=== PATIENT | male | born 1945 | race Caucasian/White ===

== ENCOUNTER 2019-01-21 18:59 | Inpatient (IN) | payer MEDICARE, OTHER, SELFPAY | END 2019-01-22 10:59 | disposition home or self-care (01) | DRG 309 | PROVIDERS: Admitting Provider Internal Medicine; Emergency Provider Emergency Medicine; Visit Provider Internal Medicine | DX: I47.2 Ventricular tachycardia (principal); I50.22 Chronic systolic (congestive) heart failure; I48.91 Unspecified atrial fibrillation; J44.9 Chronic obstructive pulmonary disease, unspecified; E78.5 Hyperlipidemia, unspecified; I25.10 Atherosclerotic heart disease of native coronary artery without angina pectoris; Z95.1 Presence of aortocoronary bypass graft; N40.0 Benign prostatic hyperplasia without lower urinary tract symptoms; F43.10 Post-traumatic stress disorder, unspecified; Z95.5 Presence of coronary angioplasty implant and graft; F17.210 Nicotine dependence, cigarettes, uncomplicated | CPT/HCPCS: 36415; 71046; 80048; 80053; 83735; 83880; 84439; 84443; 84480; 84484; 85025; 85610; 85730; 93005; 96374; 99285; A9270; J0282 ==

== ENCOUNTER 2020-05-02 18:16 | Emergency (ER) | payer OTHER, SELFPAY ==
--- NOTE | ~2020-05-02 | CT_ITS ---
EXAMINATION: CT brain wo con DATE: 05/02/2020 18:54 INDICATION: Syncopal episode TECHNIQUE: Computed tomography (CT) of the head was performed without intravenous contrast. The dose- length product was 605.33 mGy-cm. The mA was adjusted according to patient size. Iterative reconstruc tion technique was employed. COMPARISON: CT dated 02/18/2018 FINDINGS: Brain parenchymal volume is normal for age. There is a chronic right occipital lobe infarct ion versus focal sulcal prominence. No significant change. There are scattered mild periventricular a nd subcortical white matter changes, most likely related to small vessel ischemic disease (microangio alyssia). No acute intracranial hemorrhage, infarction, mass or mass effect. No ventriculomegaly or mid line shift. Paranasal sinuses and mastoids are pneumatized. No depressed skull fractures. Stable left temporal region calcification, likely benign. IMPRESSION: 1. No acute intracranial abnormality. No significant change from prior examination. Reviewed, dictated and finalized at location A. IMPRESSION: 1. No acute intracranial abnormality. No significant change from prior examinat ion.
--- NOTE | ~2020-05-02 | XR_ITS ---
XR chest 2V 05/02/2020 19:00 Indication: Syncope. Patient on blood thinners. Procedure: AP view of the chest Comparison: 01/21/2019 Findings: Status post median sternotomy for CABG. Moderate cardiomegaly. Pacemaker leads are stable. There is mild pulmonary vascular congestion. No focal parenchymal consolidation, effusion or pneumoth orax. Impression: 1: Moderate cardiomegaly with mild pulmonary vascular congestion. Reviewed, dictated and finalized at location A. Impression: 1: Moderate cardiomegaly with mild pulmonary vascular congestion.
[2020-05-02 18:17] VITALS: BP 104/68; PULSE 73; RESP 18; TEMP 36.7; O2SAT 96
--- NOTE | 2020-05-02 18:27 | ED.SYNCOPE ---
HPI - Syncope General Chief Complaint: Syncope Stated Complaint: Syncopal Time Seen by Provider: 05/02/20 18:21 Source: patient and EMS History of Present Illness HPI narrative: 75-year-old male presents to emergency department after syncopal episode today. Patient states he was riding his lawnmower, and then fell off of it. No symptoms prior to falling off of it. Unsure how long he was passed out for. Unknown if seizure-like activity. Patient states he has never passed out like this in the past before. Patient states currently he just feels tired. No chest pain or shortness of breath. No abdominal pain. No nausea or vomiting. Related Data Allergies Allergy/AdvReac Type Severity Reaction Status Date / Time Sulfa (Sulfonamide Allergy Mild Verified 01/21/19 22:29 Antibiotics) Review of Systems Review of Systems: Narrative: CONSTITUTIONAL: Denies fever, chills, or sweats. EYES: Denies visual changes, redness, or discharge. ENT: Denies rhinorrhea, congestion, sore throat, or otalgia. CARDIOVASCULAR: Denies chest pain, palpitations, or edema. RESPIRATORY: Denies cough or dyspnea. GASTROINTESTINAL: Denies abdominal pain, nausea, vomiting, or diarrhea. GENITOURINARY: Denies dysuria or hematuria. SKIN: Denies rash or itching. MUSCULOSKELETAL: Denies back pain, joint pain, or myalgia. NEUROLOGIC: Denies headache, numbness, dizziness, or weakness. Positive for syncope PSYCHIATRIC: Denies anxiety or depression. All systems reviewed & are unremarkable except as noted in HPI and below (ROS) PMFSH Social History Social History Gender identity (if verbalized by the patient): Male Exam Narrative: Exam Narrative: GENERAL: Well-appearing, well-nourished. Mild distress HEAD: Normocephalic, atraumatic. EYES: PERRLA and EOMI. ENT: Nares clear, no rhinorrhea or epistaxis. Mucous membranes moist. NECK: Supple. CHEST: Clear to auscultation. No respiratory distress. HEART: Regular rate and rhythm. No murmur heard. Normal peripheral pulses. ABDOMEN: Soft, nontender, nondistended, normal active bowel sounds. EXTREMITIES: Normal range of motion. No edema. SKIN: Multiple abrasions on body. NEURO: No focal deficits. Alert and oriented x3. PSYCH: Slowed responses. Course Vital Signs Vital signs: Vital Signs Temperature 36.7 C 05/02/20 18:17 Pulse Rate 73 05/02/20 18:17 Respiratory Rate 18 05/02/20 18:17 Blood Pressure 104/68 05/02/20 18:17 Pulse Oximetry 96 05/02/20 18:17 Temperature 36.8 C 05/02/20 21:38 Pulse Rate 78 05/02/20 21:38 Respiratory Rate 16 05/02/20 21:38 Blood Pressure 148/86 H 05/02/20 21:38 Pulse Oximetry 97 05/02/20 21:38 MDM - Syncope MDM Narrative Medical decision making narrative: 2104 -reevaluated patient, no new complaints. At this time we have no clear cause of the syncopal episode. Offered to keep patient in the hospital for further evaluation of syncopal episode. Patient and family declined stating that he looks and feels back to normal. Counseled patient to follow-up with his medical provider within 1 week. Return to emergency department at any time if he passes out, has signs of stroke, or other concerns. Differential diagnosis includes TIA, heat exhaustion, and arrhythmia Medical Records Attestation: I reviewed the patient's medical records. Lab Data Attestation: I reviewed the patient's lab results. Result diagrams: 05/02/20 18:44 05/02/20 18:44 Labs: Lab Results 05/02/20 05/02/20 05/02/20 Range/Units 18:43 18:44 18:44 WBC 9.1 (4.5-10.0) K/mm3 RBC 3.85 L (4.6-6.20) M/mm3 Hgb 11.2 L (14.0-18.0) g/dL Hct 33.2 L (42.0-52.0) % MCV 86.2 (80-100) fl MCH 29.1 (26-34) pg MCHC 33.7 (32-36) g/dl RDW 14.8 H (11.5-14.5) % Plt Count 176 (150-375) k/mm3 MPV 10.0 (7.4-10.4) fl Immature Gran % (Auto) 0.4 (0-0.5) % Neut % (Auto) 56.2 (45.5-73.1) % Lymph % (Auto) 31.4
--- NOTE | 2020-05-02 18:29 | ECG_ITS ---
Measurements Intervals [place] Rate: 70 P: VA: 0 QRS: 106 QRSD: 227 T: -20 QT: 511 QTc: 554 Interpretive Statements ELECTRONIC VENTRICULAR PACEMAKER BASELINE ARTIFACT- I, V1-V2, V6 NO FURTHER INTERPRETATION IS POSSIBLE ATYPICAL ECG Electronically Signed On 05-02-2020 21:19:21 CDT by Rj Lopes D.O.
[2020-05-02 18:49] LABS: Basophils Absolute Auto 0.1 K/mm3 (0.0-0.1); Basophils Percent Auto 0.9 % (0.2-1.2); Eosinophils Absolute Auto 0.3 K/mm3 (0-0.3); Eosinophils Percent Auto 3.4 % (0-4.4); Hematocrit 33.2 % (42.0-52.0); Hemoglobin 11.2 g/dL (14.0-18.0); Immature Granulocyte Absolute 0.04 K/mm3 (0.00-0.031); Immature Granulocyte Percent A 0.4 % (0-0.5); Lymphocytes Absolute Auto 2.85 K/mm3 (0.9-3.2); Lymphocytes Percent Auto 31.4 % (18.3-44.2); Mean Corpuscular HGB Conc 33.7 g/dl (32-36); Mean Corpuscular Hemoglobin 29.1 pg (26-34); Mean Corpuscular Volume 86.2 fl (80-100); Monocytes Absolute Auto 0.7 K/mm3 (0.1-0.6); Monocytes Percent Auto 7.7 % (2.6-8.5); Neutrophils Absolute Auto 5.1 K/mm3 (1.3-6.7); Neutrophils Percent Auto 56.2 % (45.5-73.1); Platelet Count Result 176 k/mm3 (150-375); Red Blood Count 3.85 M/mm3 (4.6-6.20); Red Cell Distribution Width 14.8 % (11.5-14.5); White Blood Count 9.1 K/mm3 (4.5-10.0)
[2020-05-02 18:56] VITALS: PULSE 74
[2020-05-02 18:59] LABS: Prothrombin Time 22.2 Seconds (11.1-14.7)
[2020-05-02 19:02] LABS: Alanine Aminotransferase 17 U/L (4-50); Albumin Level 4.2 g/dL (3.5-5.1); Alkaline Phosphatase 96 U/L (38-126); Anion Gap 11 mmol/L (8-16); Aspartate Amino Transferase 26 U/L (17-59); Bilirubin,Total 0.6 mg/dL (0.2-1.3); Blood Urea Nitrogen 27 mg/dL (9-20); Calcium 8.2 mg/dL (8.4-10.2); Carbon Dioxide 22 mmol/L (22-30); Chloride 100 mmol/L (98-107); Estimated Glomerular Filt Rate 37; Glucose 128 mg/dL (75-110); Potassium 3.4 mmol/L (3.4-5.0); Sodium 133 mmol/L (137-145)
[2020-05-02 19:14] LABS: NT Pro B Type Natriuretic Pept 3160 PG/ML (5-100); Troponin I 0.033 ng/mL (0.000-0.034)
[2020-05-02 19:16] LABS: Magnesium 1.9 mg/dL (1.6-2.3)
[2020-05-02] MEDS: SODIUM CHLORIDE 0.9% IV 1,000 ML 999 ML IV CONT (19:43)
[2020-05-02 20:37] LABS: Free T4 Free Thyroxine Reflex 1.42 ng/dL (0.78-2.19)
[2020-05-02 21:38] VITALS: BP 148/86; PULSE 78; RESP 16; TEMP 36.8; O2SAT 97
[2020-05-02 21:43] LABS: Total Triiodothyronine (T3) 1.01 NG/ML (0.97-1.69)
== END 2020-05-02 21:39 | disposition home or self-care (01) ==
PROVIDERS: Emergency Provider Emergency Medicine
DX: R55 Syncope and collapse (principal); Z95.0 Presence of cardiac pacemaker; R53.83 Other fatigue
CPT/HCPCS: 36415; 70450; 71046; 80053; 83735; 83880; 84439; 84443; 84480; 84484; 85025; 85610; 93005; 96360; 99284; J7030